=== PATIENT | female | born 1985 | race American Indian/Alaskan Native ===

== ENCOUNTER 2017-04-21 02:10 | Emergency (ER) | payer SELFPAY ==
[2017-04-21] MEDS ORDERED: NORCO 5/325 PO ONE (03:46)
[2017-04-21] MEDS ORDERED: XYLOCAINE 1% 20 mL ONE (04:39)
[2017-04-21] MEDS ORDERED: XYLOCAINE 1% 20 mL INFILTRATI ONE (04:39)
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
[2017-04-21] MEDS ORDERED: BOOSTRIX IM ONE (06:12)
[2017-04-21 06:43] VITALS: BP 125/74
== END 2017-04-21 06:44 | disposition home or self-care (01) ==
LOC: ED 02:10
DX: S61.411A Laceration without foreign body of right hand, initial encounter (principal); F17.200 Nicotine dependence, unspecified, uncomplicated; Y08.89XA Assault by other specified means, initial encounter; Y93.9 Activity, unspecified; Y92.9 Unspecified place or not applicable; Y99.9 Unspecified external cause status
CPT/HCPCS: 90471; 90715; 99282